=== PATIENT | female | born 1965 | race Caucasian/White ===

== ENCOUNTER 2016-08-13 20:02 | Emergency (ER) | payer OTHER ==
[2016-08-13 20:42] VITALS: BP 148/84; PULSE 88; TEMP 99.4; BMI 29.2
--- NOTE | 2016-08-14 01:15 | PDOC ---
*Physical Exam - Vital Signs Last Vital Signs Temp Pulse Resp BP Pulse Ox 99.4 F 88 16 148/84 96 08/13/16 20:38 08/13/16 20:38 08/13/16 20:38 08/13/16 20:38 08/13/16 20:38 Medical Decision Making - Medical Decision Making 08/14/16 01:15 agree with care from [facility] *DC/Admit/Observation/Transfer Diagnosis at time of Disposition: Influenza, Cold sore - Discharge Dispostion Disposition: HOME - Prescriptions Prescriptions: Acyclovir [Zovirax -] 400 mg PO TID #30 tablet - Patient Instructions Printed Discharge Instructions: Influenza, DI for Cold Sores Additional Instructions: FOLLOW UP WITH YOUR PRIMARY CARE PROVIDER THIS WEEK. CALL TO SCHEDULE APPOINTMENT. TAKE MEDICATIONS PRESCRIBED. DRINK LOTS OF FLUIDS AND GET REST. MOTRIN OR TYLENOL FOR PAIN/FEVER. Print Language: B[place]NA[place]
[2016-08-14] MEDS ORDERED: ACYCLOVIR 400 MG TABLET PO ONE (01:32)
--- NOTE | 2016-08-14 01:38 | PDOC ---
History of Present Illness - General Chief Complaint: Cold Symptoms Stated Complaint: CONGESTION Time Seen by Provider: 08/14/16 00:00 History Source: Patient Exam Limitations: No Limitations - History of Present Illness Initial Comments: 08/14/16 01:33 51 yo Female patient presents to ED c/o fever, body aches, generalized weakness starting Thursday. Patient reports she took Aleve with minimal relief. LMP: Post Menopausal. She denies any other complaints at this time. Timing/Duration: 1 week Severity: moderate Modifying Factors: improves with: medication Associated Symptoms: reports: fever/chills, malaise. denies: chest pain, diaphoresis, headaches, loss of appetite, nausea/vomiting, seizure, shortness of breath Past History - Travel Traveled outside of the country in the last 30 days: No Close contact w/someone who was outside of country & ill: No - Past Medical History Allergies/Adverse Reactions: Allergies Allergy/AdvReac Type Severity Reaction Status Date / Time No Known Allergies Allergy Verified 08/13/16 20:38 Home Medications: Ambulatory Orders Acyclovir [Zovirax -] 400 mg PO TID #30 tablet 08/14/16 Other medical history: Denies - Immunization History Immunization Up to Date: Yes - Psycho/Social/Smoking Cessation Hx Suicidal Ideation: No Smoking History: Never smoked Number of Cigarettes Smoked Daily: 1 Information on smoking cessation initiated: No Hx Alcohol Use: No Drug/Substance Use Hx: No Substance Use Type: None Review of Systems - Review of Systems Able to Perform ROS?: Yes Is the patient limited [place] proficient: No Constitutional: Yes: Fever, Malaise. No: Chills HEENTM: No: Blurred Vision, Double Vision, Nose Congestion, Throat Pain Respiratory: No: Cough, Shortness of Breath, Stridor, Wheezing Cardiac (ROS): No: Chest Pain, Edema, Palpitations, Chest Tightness ABD/GI: No: Diarrhea, Nausea, Vomiting : No: Burning, Dysuria, Hematuria Musculoskeletal: No: Back Pain Integumentary: Yes: Other (Cold Sore on lip). No: Bruising, Sweating Neurological: No: Headache, Numbness, Paresthesia, Tingling, Tremors, Weakness All Other Systems: Reviewed and Negative *Physical Exam - Vital Signs Last Vital Signs Temp Pulse Resp BP Pulse Ox 99.4 F 88 16 148/84 96 08/13/16 20:38 08/13/16 20:38 08/13/16 20:38 08/13/16 20:38 08/13/16 20:38 - Physical Exam General Appearance: Yes: Nourished, Appropriately Dressed. No: Apparent Distress, Mild Distress HEENT: positive: EOMI, BIANCA, Normal ENT Inspection, Normal Voice, Symmetrical, TMs Normal, Pharynx Normal, Other (Herpatic lesion to lip) Neck: positive: Trachea midline, Supple Respiratory/Chest: positive: Lungs Clear, Normal Breath Sounds. negative: Respiratory Distress Cardiovascular: positive: Regular Rhythm, Regular Rate Gastrointestinal/Abdominal: positive: Normal Bowel Sounds, Soft Lymphatic: negative: Adenopathy Musculoskeletal: positive: Normal Inspection. negative: CVA Tenderness Extremity: positive: Normal Capillary Refill, Normal Inspection, Normal Range of Motion Integumentary: positive: Normal Color, Dry, Warm Neurologic: positive: distribution engineer II-XII NML intact, Fully Oriented, Alert, Normal Mood/ Affect, Normal Response, Motor Strength 5/5 *DC/Admit/Observation/Transfer Diagnosis at time of Disposition: Influenza, Cold sore - Discharge Dispostion Disposition: HOME Condition at time of disposition: Stable Admit: No - Prescriptions Prescriptions: Acyclovir [Zovirax -] 400 mg PO TID #30 tablet - Patient Instructions Printed Discharge Instructions: Influenza, DI for Cold Sores Additional Instructions: FOLLOW UP WITH YOUR PRIMARY CARE PROVIDER THIS WEEK. CALL TO SCHEDULE APPOINTMENT. TAKE MEDICATIONS PRESCRIBED. DRINK LOTS OF FLUIDS AND GET REST. MOTRIN OR TYLENOL FOR PAIN/FEVER. Print Language: SAMMARIN[place]
[2016-08-14] MEDS ORDERED: ACYCLOVIR 200 MG CAPSULE ONE (02:08)
== END 2016-08-14 02:12 | disposition home or self-care (01) ==
LOC: JERFT 20:02 → JER 20:02
DX: J11.1 Influenza due to unidentified influenza virus with other respiratory manifestations (principal); B00.1 Herpesviral vesicular dermatitis
CPT/HCPCS: 99281-25

== ENCOUNTER 2022-07-15 23:40 | Emergency (ER) | payer OTHER ==
[2022-07-15 23:50] VITALS: BP 185/92; PULSE 63; RESP 18; TEMP 98; BMI 24.7
[2022-07-16] MEDS ORDERED: ONDANSETRON *ODT* 4 MG TABLET SL ONE (00:31)
[2022-07-16] MEDS ORDERED: ONDANSETRON *ODT* 4 MG TABLET ONE (00:34)
== END 2022-07-16 02:31 | disposition home or self-care (01) ==
LOC: JER 23:40
PROC: 2W3CX1Z Immobilization of Right Lower Arm using Splint (ICD-10-PCS; principal; 2022-07-15)
DX: S52.501A Unspecified fracture of the lower end of right radius, initial encounter for closed fracture (principal); W00.9XXA Unspecified fall due to ice and snow, initial encounter
CPT/HCPCS: 73090-TC-RT-FY; 73110-TC-RT-FY; 73130-TC-RT-FY; 99284-25; Q0162

== ENCOUNTER 2022-07-24 00:58 | Emergency (ER) | payer OTHER ==
[2022-07-24 01:47] VITALS: BP 159/84; PULSE 69; RESP 18; TEMP 97.9; BMI 24.7
== END 2022-07-24 03:38 | disposition home or self-care (01) ==
LOC: JER 00:58
PROC: 2W3CX1Z Immobilization of Right Lower Arm using Splint (ICD-10-PCS; principal; 2022-07-24)
DX: S52.501A Unspecified fracture of the lower end of right radius, initial encounter for closed fracture (principal); W19.XXXA Unspecified fall, initial encounter
CPT/HCPCS: 99283-25